=== PATIENT | female | born 1995 | race Two or more races ===

== ENCOUNTER 2017-10-07 21:12 | Emergency (ER) | payer OTHER ==
[2017-10-07] MEDS: ACETAMINOPHEN 500 MG TABLET PO (22:13)
[2017-10-07] MEDS: IV NORMAL SALINE 1000ML BAG 1,000 ML IV (22:14)
[2017-10-07 22:17] LABS: URINE HCG POC HCG NEGATIVE (Negative)
[2017-10-07 22:32] LABS: INFLUENZA A PATIENT NEGATIVE (NEGATIVE); INFLUENZA B PATIENT NEGATIVE (NEGATIVE); OBC FLU VALID
[2017-10-07] MEDS ORDERED: IBUPROFEN 400 MG TABLET. PO (23:22)
[2017-10-07] MEDS: IBUPROFEN 400 MG TABLET. PO (23:23)
[2017-10-08 10:16] LABS: NEGATIVE OBC STREP NEG; POSITIVE OBC STREP POS
== END 2017-10-08 00:24 | disposition home or self-care (01) ==
LOC: ER 21:12
DX: J02.0 Streptococcal pharyngitis (principal)
CPT/HCPCS: 81025; 87804; 87804-59; 87880; 96360; 96361; 99285-25; J7030

== ENCOUNTER 2017-10-22 18:47 | Inpatient (IN) | payer OTHER ==
[2017-10-22 19:09] LABS: URINE HCG POC HCG NEGATIVE (Negative)
[2017-10-22] MEDS: ACETAMINOPHEN 500 MG TABLET PO (19:21)
[2017-10-22] MEDS: IV NORMAL SALINE 1000ML BAG 1,000 ML IV (19:30)
[2017-10-22 19:34] LABS: BILIRUBIN,URINE NEGATIVE (NEG); CLARITY,URINE CLOUDY; COLOR,URINE YELLOW; GLUCOSE,URINE NEGATIVE (NEG); NITRITE,URINE NEGATIVE (NEG); PROTEIN,URINE 30 mg/dL (NEG-TRACE)
[2017-10-22 19:43] LABS: BACTERIA,URINE MODERATE /HPF (0-FEW); SQUAMOUS EPITHELIAL CELL,UR FEW /LPF; WBC,URINE TNTC /HPF (0-4)
[2017-10-22 19:44] LABS: BARBITURATES NEG (NEG); BENZODIAZEPINES NEG (NEG); CANNABINOIDS NEG (NEG); COCAINE NEG (NEG); METHADONE NEG (NEG); OPIATES NEG (NEG); PHENCYCLIDINE NEG (NEG)
[2017-10-22 19:51] LABS: AMPHETAMINE/METHAMPHETAMINE NEG (NEG); ETHANOL, URINE NEG (NEG)
[2017-10-22 19:55] LABS: D-DIMER 0.31 ug/mlFEU (0.00-0.50)
[2017-10-22 19:59] LABS: ANION GAP 9 (6-14); BLOOD UREA NITROGEN 16 mg/dL (7-20); BUN/CREATININE RATIO 18 (6-20); CALCIUM 8.4 mg/dL (8.5-10.1); CARBON DIOXIDE 26 mmol/L (21-32); CHLORIDE 101 mmol/L (98-107); CREATININE 0.9 mg/dL (0.6-1.0); GFR 80.7; GLUCOSE 112 mg/dL (70-99); POTASSIUM 3.3 mmol/L (3.5-5.1); SODIUM 136 mmol/L (136-145)
[2017-10-22 19:59] LABS: ETHANOL < 10 mg/dL (0-10)
[2017-10-22] MEDS ORDERED: cefTRIAXone SODIUM 2 GM in IV DEXTROSE 5% 100 ML IV (20:00)
[2017-10-22 20:04] LABS: LACTIC ACID 0.9 mmol/L (0.4-2.0)
[2017-10-22 20:07] LABS: TROPONINI < 0.017 ng/mL (0.000-0.055)
[2017-10-22 20:10] LABS: INFLUENZA A PATIENT NEGATIVE (NEGATIVE); INFLUENZA B PATIENT NEGATIVE (NEGATIVE); OBC FLU VALID
[2017-10-22 20:10] LABS: THYROID STIM HORMONE (TSH) 0.953 uIU/mL (0.358-3.74)
[2017-10-22 20:11] LABS: ALBUMIN 3.7 g/dL (3.4-5.0); ALBUMIN/GLOBULIN RATIO 0.8 (1.0-1.7); ALK PHOS 104 U/L (46-116); ALT (SGPT) 38 U/L (14-59); AST (SGOT) 26 U/L (15-37); CREATINE KINASE 58 U/L (26-192); LIPASE 107 U/L (73-393); MAGNESIUM 1.9 mg/dL (1.8-2.4); TOTAL BILIRUBIN 0.7 mg/dL (0.2-1.0); TOTAL PROTEIN 8.5 g/dL (6.4-8.2)
[2017-10-22 20:24] LABS: ADD MAN DIFF? NO
[2017-10-22 20:26] LABS: BASO % 0 % (0-3); EOS % 0 % (0-3); HEMATOCRIT 34.7 % (36.0-47.0); HEMOGLOBIN 11.4 g/dL (12.0-15.5); LYMPH # 1.7 x10^3/uL (1.0-4.8); LYMPH % 15 % (24-48); MEAN CORPUSCULAR HEMOGLOBIN 27 pg (25-35); MEAN CORPUSCULAR HGB CONC 33 g/dL (31-37); MEAN CORPUSCULAR VOLUME 82 fL (79-100); MONO % 9 % (0-9); NEUT # 8.5 x10^3uL (1.8-7.7); NEUT % 75 % (31-73); PLATELET COUNT 255 x10^3/uL (140-400); RED BLOOD COUNT 4.23 x10^6/uL (3.50-5.40); RED CELL DISTRIBUTION WIDTH 14.4 % (11.5-14.5); WHITE BLOOD COUNT 11.3 x10^3/uL (4.0-11.0)
[2017-10-22] MEDS: cefTRIAXone IV Push 2 GM VIAL. IVP (20:34)
[2017-10-22] MEDS: POTASSIUM CHLORIDE 20 MEQ TABLET.ER. PO (21:45)
[2017-10-22] MEDS: POTASSIUM CL 40MEQ IN 0.9%NACL 1,000 ML IV (22:18)
[2017-10-23] MEDS: ACETAMINOPHEN 325 MG TABLET. PO ×3 (02:21→23:06)
[2017-10-23] MEDS: ONDANSETRON PF 4 MG/2 ML VIAL. IV (03:52)
[2017-10-23 04:23] LABS: ADD MAN DIFF? NO
[2017-10-23 04:42] LABS: BASO % 0 % (0-3); EOS % 0 % (0-3); HEMATOCRIT 35.8 % (36.0-47.0); HEMOGLOBIN 11.5 g/dL (12.0-15.5); LYMPH # 0.9 x10^3/uL (1.0-4.8); LYMPH % 10 % (24-48); MEAN CORPUSCULAR HEMOGLOBIN 27 pg (25-35); MEAN CORPUSCULAR HGB CONC 32 g/dL (31-37); MEAN CORPUSCULAR VOLUME 83 fL (79-100); MONO # 0.7 x10^3/uL (0.0-1.1); MONO % 7 % (0-9); NEUT # 7.8 x10^3uL (1.8-7.7); NEUT % 83 % (31-73); PLATELET COUNT 217 x10^3/uL (140-400); RED CELL DISTRIBUTION WIDTH 15.2 % (11.5-14.5); WHITE BLOOD COUNT 9.4 x10^3/uL (4.0-11.0)
[2017-10-23 04:49] LABS: ANION GAP 9 (6-14); BLOOD UREA NITROGEN 13 mg/dL (7-20); CALCIUM 8.4 mg/dL (8.5-10.1); CARBON DIOXIDE 23 mmol/L (21-32); CHLORIDE 107 mmol/L (98-107); CREATININE 0.7 mg/dL (0.6-1.0); GFR 107.8; GLUCOSE 103 mg/dL (70-99); POTASSIUM 4.2 mmol/L (3.5-5.1); SODIUM 139 mmol/L (136-145)
[2017-10-23] MEDS: IBUPROFEN 400 MG TABLET. PO ×3 (06:09→23:06)
[2017-10-23] MEDS: LACTOBACILLUS RHAMNOSUS GG 1 CAPSULE. PO (20:43)
[2017-10-23] MEDS: cefTRIAXone IV Push 2 GM VIAL. IVP (20:43)
[2017-10-23] MEDS: IV NORMAL SALINE 1000ML BAG 1,000 ML IV (23:22)
[2017-10-24] MEDS: LACTOBACILLUS RHAMNOSUS GG 1 CAPSULE. PO (08:46)
[2017-10-24] MEDS: ACETAMINOPHEN 325 MG TABLET. PO (10:45)
== END 2017-10-24 11:59 | disposition home or self-care (01) | DRG 872 ==
LOC: ER 18:47 → 5 NORTH 20:29
DX: A41.9 Sepsis, unspecified organism (principal); N12 Tubulo-interstitial nephritis, not specified as acute or chronic; N39.0 Urinary tract infection, site not specified; E87.6 Hypokalemia; Z82.49 Family history of ischemic heart disease and other diseases of the circulatory system; Z91.19 Patient's noncompliance with other medical treatment and regimen
CPT/HCPCS: 36415; 71045; 80048; 80053; 80307; 81001; 81025; 82550; 83605; 83690; 83735; 84443; 84484; 85025; 85379; 87040; 87086; 87186; 87804; 87804-59; 93005; 96361; 96374; 99285; 99285-25; G0480; J0696; J2405; J3480; J7030

== ENCOUNTER 2019-01-09 20:12 | Emergency (ER) | payer OTHER ==
[~2019-01-09] VITALS: Ht 152.4 cm; Wt 67.1 kg
[~2019-01-09 20:12] MED LIST: ACET325T9 PO; AMOX1TAB61 PO; AMOX500C PO; IBUP-1060 PO; OSEL75CA PO
[2019-01-09 21:05] VITALS: BP 117/68
== END 2019-01-09 23:18 | disposition left against medical advice (07) ==
LOC: ER 20:12
DX: R10.30 Lower abdominal pain, unspecified (principal); Z53.21 Procedure and treatment not carried out due to patient leaving prior to being seen by health care provider

== ENCOUNTER 2021-10-09 10:35 | Emergency (ER) | payer MEDICAID, OTHER ==
[~2021-10-09] VITALS: Ht 152.4 cm; Wt 74.3 kg
[2021-10-09] MEDS ORDERED: IV NORMAL SALINE 1000ML BAG 1,000 ML IV ONE (11:30)
[2021-10-09] MEDS ORDERED: ACETAMINOPHEN 500 MG TABLET PO ONE (11:30)
[2021-10-09] MEDS ORDERED: IBUPROFEN 200 MG TABLET. PO ONE (11:30)
--- NOTE | 2021-10-09 11:58 | RAD ---
AP chest. HISTORY: Cough, congestion AP view was taken of the chest. Lungs are clear. Heart is normal in size. There is no pleural effusio n. IMPRESSION: 1. No acute infiltrates. Electronically signed by: Freddy Roberson MD (10/09/2021 11:55 AM) [facility]
[2021-10-09 12:06] LABS: BASO % 1 % (0-3); EOS # 0.1 x10^3/uL (0.0-0.7); EOS % 1 % (0-3); HEMATOCRIT 42.7 % (36.0-47.0); HEMOGLOBIN 14.2 g/dL (12.0-15.5); LYMPH % 19 % (24-48); MEAN CORPUSCULAR HEMOGLOBIN 30 pg (25-35); MEAN CORPUSCULAR HGB CONC 33 g/dL (31-37); MEAN CORPUSCULAR VOLUME 89 fL (79-100); MONO # 0.5 x10^3/uL (0.0-1.1); MONO % 9 % (0-9); NEUT # 3.8 x10^3/uL (1.8-7.7); NEUT % 71 % (31-73); PLATELET COUNT 205 x10^3/uL (140-400); RED BLOOD COUNT 4.78 x10^6/uL (3.50-5.40); RED CELL DISTRIBUTION WIDTH 12.6 % (11.5-14.5); WHITE BLOOD COUNT 5.3 x10^3/uL (4.0-11.0)
[2021-10-09 12:13] LABS: BILIRUBIN,URINE NEGATIVE (NEG); CLARITY,URINE HAZY; COLOR,URINE YELLOW; PH,URINE 8.5 (<5.0-8.0)
[2021-10-09 12:14] LABS: NITRITE,URINE NEGATIVE (NEG); PROTEIN,URINE NEGATIVE (NEG-TRACE)
[2021-10-09 12:15] LABS: CALCIUM 8.2 mg/dL (8.5-10.1); CREATININE 0.8 mg/dL (0.6-1.0); GFR 88.9; POTASSIUM 3.5 mmol/L (3.5-5.1)
[2021-10-09 12:15] LABS: BACTERIA,URINE FEW /HPF (0-FEW); RBC,URINE OCC /HPF (0-2)
[2021-10-09 12:21] LABS: ALBUMIN/GLOBULIN RATIO 0.8 (1.0-1.7); TOTAL BILIRUBIN 0.2 mg/dL (0.2-1.0); TOTAL PROTEIN 8.8 g/dL (6.4-8.2)
[2021-10-09 12:33] LABS: INFLUENZA B PATIENT NEGATIVE (NEGATIVE)
--- NOTE | 2021-10-09 12:34 | PHYS DOC ---
Past Medical History Past Medical History: No Pertinent History Past Surgical History: No Surgical History Additional Past Surgical Histo: 07/2017 Smoking Status: Never Smoker Alcohol Use: None Drug Use: None General Adult EDM: Chief Complaint: FEVER HPI: HPI: Patient is a 25-year-old female who presents with emergency department concerning cough and congestion with fever and chills since this past Friday. Patient reports she took a 500 mg [id number] Tylenol at 4 AM with minimal relief and fevers. Patient reports she did not take her temperature however she states she just felt hot. Patient denies chest pains, denies body aches, denies general malaise, denies loss of taste loss of smell, denies nausea, vomiting, diarrhea or abdominal discomfort, denies throat pain or ear pain. Patient reports her last menstrual cycle was in April 2021 stating she had her Implanon removed and has not had a menstrual cycle since. Patient denies vaginal discharge, rashes or lesions to her genitals, denies STI concerns. Patient states she has not been vaccinated for the flu virus or COVID-19 virus. Patient denies other physical complaints or physical concerns. Review of Systems: Review of Systems: 14 body systems of review of systems have been reviewed. See HPI for pertinent positives and negative responses, otherwise all other systems are negative, nonpertinent or noncontributory. Constitutional: Negative except as outlined in HPI above. Skin: Negative except as outlined in HPI above. Eyes: Negative except as outlined in HPI above. HENT: Negative except as outlined in HPI above. Respiratory: Negative except as outlined in HPI above. Cardiovascular: Negative except as outlined in HPI above. GI: Negative except as outlined in HPI above. : Negative except as outlined in HPI above. Musculoskeletal: Negative except as outlined in HPI above. Integument: Negative except as outlined in HPI above. Neurologic: Negative except as outlined in HPI above. Endocrine: Negative except as outlined in HPI above. Lymphatic: Negative except as outlined in HPI above. Psychiatric: Negative except as outlined in HPI above. Heart Score: C/O Chest Pain: No Risk Factors: Risk Factors: DM, Current or recent (<one month) smoker, HTN, HLP, family history of CAD, obesity. Risk Scores: Score 0 - 3: 2.5% MACE over next 6 weeks - Discharge Home Score 4 - 6: 20.3% MACE over next 6 weeks - Admit for Clinical Observation Score 7 - 10: 72.7% MACE over next 6 weeks - Early Invasive Strategies Current Medications: Current Medications Medications (Trade) Dose Ordered Sig/Diana Start Time Stop Time Status Last Admin Dose Admin Acetaminophen (Tylenol) 1,000 mg 1X ONCE 10/09/21 11:30 10/09/21 11:33 DC 10/09/21 12:02 1,000 MG Ibuprofen (Motrin) 600 mg 1X ONCE 10/09/21 11:30 10/09/21 11:33 DC 10/09/21 12:01 600 MG Sodium Chloride 1,000 ml @ 1,000 mls/hr 1X ONCE 10/09/21 11:30 10/09/21 12:29 10/09/21 12:01 1,000 MLS/HR Allergies: Allergies: Allergies Coded Allergies Type Severity Reaction Last Updated Verified No Known Drug Allergies 10/07/17 No Physical Exam: PE: Constitutional: Well developed, well nourished, no acute distress, non-toxic a ppearance. 25-year-old female in no apparent distress. HENT: Normocephalic, atraumatic. Oropharynx moist, pink, no deep tissue infectious process appreciated, the lymphadenopathy of the head or neck appreciated, bilateral TMs intact and within normal limits Eyes: Conjunctiva normal, no discharge. Neck: Normal range of motion, no stridor. No nuchal rigidity, no meningeal signs. Cardiovascular: No cyanosis appreciated, distal cap refill less than 2 seconds. Regular rate and rhythm, heart sounds S1-S2 to auscultation. Lungs & Thorax: Patient is in no respiratory distress, no audible adventitious lung sounds appreciated. Lung sounds are clear to auscultation all lung pierre, normal work of breathing. Abdomen: Nontender, no abnormalities noted. Skin: Warm, dry, no erythema, no rash. Back: No tenderness, no deformities. Extremities: No tenderness, no cyanosis, no clubbing, ROM intact, no edema. Neurologic: Alert and oriented X 3, normal motor function, normal sensory function, no focal deficits noted. Psychologic: Affect normal, judgement normal, mood normal. Current Patient Data: Labs: Laboratory Tests Test 10/09/21 11:02 10/09/21 11:15 10/09/21 11:20 10/09/21 11:28 Influenza Type A Antigen Positive Influenza Type B Antigen Negative SARS-CoV-2 Antigen (Rapid) Negative Urine Collection Type Unknown Urine Color Yellow Urine Clarity Hazy Urine pH 8.5 Urine Specific [place] 1.020 Urine Protein Negative mg/dL Urine Glucose (UA) Negative mg/dL Urine Ketones (Stick) Negative mg/dL Urine Blood Negative Urine Nitrite Negative Urine Bilirubin Negative Urine Urobilinogen Dipstick 1.0 mg/dL Urine Leukocyte Esterase Negative Urine RBC Occ /HPF Urine WBC 1-4 /HPF Urine Squamous Epithelial Cells Few /LPF Urine Bacteria Few /HPF Urine Mucus Slight /LPF White Blood Count 5.3 x10^3/uL Red Blood Count 4.78 x10^6/uL Hemoglobin 14.2 g/dL Hematocrit 42.7 % Mean Corpuscular Volume 89 fL Mean Corpuscular Hemoglobin 30 pg Mean Corpuscular Hemoglobin Concent 33 g/dL Red Cell Distribution Width 12.6 % Platelet Count 205 x10^3/uL Neutrophils (%) (Auto) 71 % Lymphocytes (%) (Auto) 19 % Monocytes (%) (Auto) 9 % Eosinophils (%) (Auto) 1 % Basophils (%) (Auto) 1 % Neutrophils # (Auto) 3.8 x10^3/uL Lymphocytes # (Auto) 1.0 x10^3/uL Monocytes # (Auto) 0.5 x10^3/uL Eosinophils # (Auto) 0.1 x10^3/uL Basophils # (Auto) 0.0 x10^3/uL Sodium Level 136 mmol/L Potassium Level 3.5 mmol/L Chloride Level 101 mmol/L Carbon Dioxide Level 28 mmol/L Anion Gap 7 Blood Urea Nitrogen 8 mg/dL Creatinine 0.8 mg/dL Estimated GFR (Cockcroft-Gault) 88.9 BUN/Creatinine Ratio 10 Glucose Level 88 mg/dL Calcium Level 8.2 mg/dL Total Bilirubin 0.2 mg/dL Aspartate Amino Transf (AST/SGOT) 30 U/L Alanine Aminotransferase (ALT/SGPT) 47 U/L Alkaline Phosphatase 61 U/L Total Protein 8.8 g/dL Albumin 4.0 g/dL Albumin/Globulin Ratio 0.8 Bedside Urine HCG, Qualitative Hcg negative Current Medications Medications (Trade) Dose Ordered Sig/Diana Route PRN Reason Start Time Stop Time Status Last Admin Dose Admin Sodium Chloride 1,000 ml @ 1,000 mls/hr 1X ONCE IV 10/09/21 11:30 10/09/21 12:29 DC 10/09/21 12:01 Acetaminophen (Tylenol) 1,000 mg 1X ONCE PO 10/09/21 11:30 10/09/21 11:33 DC 10/09/21 12:02 Ibuprofen (Motrin) 600 mg 1X ONCE PO 10/09/21 11:30 10/09/21 11:33 DC 10/09/21 12:01 Laboratory Tests Test 10/09/21 11:02 10/09/21 11:15 10/09/21 11:20 10/09/21 11:28 Influenza Type A Antigen Positive Influenza Type B Antigen Negative SARS-CoV-2 Antigen (Rapid) Negative Urine Collection Type Unknown Urine Color Yellow Urine Clarity Hazy Urine pH 8.5 Urine Specific [place] 1.020 Urine Protein Negative mg/dL Urine Glucose (UA) Negative mg/dL Urine Ketones (Stick) Negative mg/dL Urine Blood Negative Urine Nitrite Negative Urine Bilirubin Negative Urine Urobilinogen Dipstick 1.0 mg/dL Urine Leukocyte Esterase Negative Urine RBC Occ /HPF Urine WBC 1-4 /HPF Urine Squamous Epithelial Cells Few /LPF Urine Bacteria Few /HPF Urine Mucus Slight /LPF White Blood Count 5.3 x10^3/uL Red Blood Count 4.78 x10^6/uL Hemoglobin 14.2 g/dL Hematocrit 42.7 % Mean Corpuscular Volume 89 fL Mean Corpuscular Hemoglobin 30 pg Mean Corpuscular Hemoglobin Concent 33 g/dL Red Cell Distribution Width 12.6 % Platelet Count 205 x10^3/uL Neutrophils (%) (Auto) 71 % Lymphocytes (%) (Auto) 19 % Monocytes (%) (Auto) 9 % Eosinophils (%) (Auto) 1 % Basophils (%) (Auto) 1 % Neutrophils # (Auto) 3.8 x10^3/uL Lymphocytes # (Auto) 1.0 x10^3/uL Monocytes # (Auto) 0.5 x10^3/uL Eosinophils # (Auto) 0.1 x10^3/uL Basophils # (Auto) 0.0 x10^3/uL Sodium Level 136 mmol/L Potassium Level 3.5 mmol/L Chloride Level 101 mmol/L Carbon Dioxide Level 28 mmol/L Anion Gap 7 Blood Urea Nitrogen 8 mg/dL Creatinine 0.8 mg/dL Estimated GFR (Cockcroft-Gault) 88.9 BUN/Creatinine Ratio 10 Glucose Level 88 mg/dL Calcium Level 8.2 mg/dL Total Bilirubin 0.2 mg/dL Aspartate Amino Transf (AST/SGOT) 30 U/L Alanine Aminotransferase (ALT/SGPT) 47 U/L Alkaline Phosphatase 61 U/L Total Protein 8.8 g/dL Albumin 4.0 g/dL Albumin/Globulin Ratio 0.8 Bedside Urine HCG, Qualitative Hcg negative Current Medications Medications (Trade) Dose Ordered Sig/Diana Route PRN Reason Start Time Stop Time Status Last Admin Dose Admin Sodium Chloride 1,000 ml @ 1,000 mls/hr 1X ONCE IV 10/09/21 11:30 10/09/21 12:29 DC 10/09/21 12:01 Acetaminophen (Tylenol) 1,000 mg 1X ONCE PO 10/09/21 11:30 10/09/21 11:33 DC 10/09/21 12:02 Ibuprofen (Motrin) 600 mg 1X ONCE PO 10/09/21 11:30 10/09/21 11:33 DC 10/09/21 12:01 Laboratory Tests Test 10/09/21 11:15 10/09/21 11:20 10/09/21 11:28 Urine Collection Type Unknown Urine Color Yellow Urine Clarity Hazy Urine pH 8.5 (<5.0-8.0) Urine Specific [place] 1.020 (1.000-1.030) Urine Protein Negative mg/dL (NEG-TRACE) Urine Glucose (UA) Negative mg/dL (NEG) Urine Ketones (Stick) Negative mg/dL (NEG) Urine Blood Negative (NEG) Urine Nitrite Negative (NEG) Urine Bilirubin Negative (NEG) Urine Urobilinogen Dipstick 1.0 mg/dL (0.2 mg/dL) Urine Leukocyte Esterase Negative (NEG) Urine RBC Occ /HPF (0-2) Urine WBC 1-4 /HPF (0-4) Urine Squamous Epithelial Cells Few /LPF Urine Bacteria Few /HPF (0-FEW) Urine Mucus Slight /LPF White Blood Count 5.3 x10^3/uL (4.0-11.0) Red Blood Count 4.78 x10^6/uL (3.50-5.40) Hemoglobin 14.2 g/dL (12.0-15.5) Hematocrit 42.7 % (36.0-47.0) Mean Corpuscular Volume 89 fL (79-100) Mean Corpuscular Hemoglobin 30 pg (25-35) Mean Corpuscular Hemoglobin Concent 33 g/dL (31-37) Red Cell Distribution Width 12.6 % (11.5-14.5) Platelet Count 205 x10^3/uL (140-400) Neutrophils (%) (Auto) 71 % (31-73) Lymphocytes (%) (Auto) 19 % (24-48) L Monocytes (%) (Auto) 9 % (0-9) Eosinophils (%) (Auto) 1 % (0-3) Basophils (%) (Auto) 1 % (0-3) Neutrophils # (Auto) 3.8 x10^3/uL (1.8-7.7) Lymphocytes # (Auto) 1.0 x10^3/uL (1.0-4.8) Monocytes # (Auto) 0.5 x10^3/uL (0.0-1.1) Eosinophils # (Auto) 0.1 x10^3/uL (0.0-0.7) Basophils # (Auto) 0.0 x10^3/uL (0.0-0.2) Sodium Level 136 mmol/L (136-145) Potassium Level 3.5 mmol/L (3.5-5.1) Chloride Level 101 mmol/L (98-107) Carbon Dioxide Level 28 mmol/L (21-32) Anion Gap 7 (6-14) Blood Urea Nitrogen 8 mg/dL (7-20) Creatinine 0.8 mg/dL (0.6-1.0) Estimated GFR (Cockcroft-Gault) 88.9 BUN/Creatinine Ratio 10 (6-20) Glucose Level 88 mg/dL (70-99) Calcium Level 8.2 mg/dL (8.5-10.1) L Total Bilirubin 0.2 mg/dL (0.2-1.0) Aspartate Amino Transferase (AST) 30 U/L (15-37) Alanine Aminotransferase (ALT) 47 U/L (14-59) Alkaline Phosphatase 61 U/L (46-116) Total Protein 8.8 g/dL (6.4-8.2) H Albumin 4.0 g/dL (3.4-5.0) Albumin/Globulin Ratio 0.8 (1.0-1.7) L POC Urine HCG, Qualitative Hcg negative (Negative) Laboratory Tests 10/09/21 11:20 Laboratory Tests 10/09/21 11:20 Vital Signs: Vital Signs Date Time Temp Pulse Resp B/P (MAP) Pulse Ox O2 Delivery O2 Flow Rate FiO2 10/09/21 11:05 101.2 100 18 136/82 (100) 97 Room Air 101.2 EKG: EKG: [] Radiology/Procedures: Radiology/Procedures: REASON: Cough, congestion PROCEDURE: CHEST AP ONLY AP chest. HISTORY: Cough, congestion AP view was taken of the chest. Lungs are clear. Heart is normal in size. There is no pleural effusion. IMPRESSION: 1. No acute infiltrates. Electronically signed by: Freddy Roberson MD (10/09/2021 11:55 AM) [facility] Course & Med Decision Making: Course & Med Decision Making Pertinent Labs and Imaging studies reviewed. (See chart for details) 24-year-old female, vital signs reviewed, presents with emergency department concerning cough congestion with fever. Physical examination is unremarkable, however will order chest x-ray, CBC, BMP, urinalysis assay, urine test, 1 L normal saline, Tylenol and Motrin for fever of 101.2. Rapid flu and rapid COVID testing. CBC and BMP unremarkable, patient's urine is not infected, she is not per urine test, rapid Covid testing negative, rapid flu B-, patient is positive for rapid flu A, upon reevaluation of the patient, patient states she is feeling much better now oral temp is now 98.9, discussed findings of flu A with patient, Tamiflu was considered however is outside the recommended start time, discussed home care instructions with patient, follow-up with primary care soon, staying well-hydrated, may continue using Tylenol and or Motrin for return of fevers, discussed return to ER precautions or concerns, patient gave verbal understanding of and is amenable to ED discharge planning. Discussed with the patient all findings and diagnostic testing as well as the need to follow-up with their primary care provider for further evaluation and treatment or return to the ED if any new or worsening symptoms. Strict return precautions were also discussed at length, the patient voiced understanding and agreement with the discharge planning. The patient was nontoxic in appearance, in no apparent distress, and hemodynamically stable at the time of disposition. Dragon Disclaimer: Dragon Disclaimer: This electronic medical record was generated, in whole or in part, using a voice recognition dictation system. Departure Departure Impression: Primary Impression: Influenza A Disposition: HOME / SELF CARE / HOMELESS Condition: GOOD Referrals: NO PCP (PCP) Patient Instructions: Influenza Facts, Influenza, Adult Additional Instructions: You were seen today in the emergency department for fevers with cough and congestion since Friday. Your chest x-ray is reassuring as there is no pne umonia or infection appreciated, your blood work did not show any concerning findings, your rapid Covid test is negative, you did test positive for influenza A, I suspect your fevers may return, please use [id number] Tylenol and/or Motrin as directed for return of fevers body aches chills or other flulike symptoms, please drink plenty of fluids, follow-up with your primary care physician for ongoing symptoms, return to the emergency department for worsening symptoms or other concerns. Thank you for visiting our Emergency Department. It was a pleasure taking care of you today in the emergency department and we appreciate you trusting us with your care. If any additional problems come up don't hesitate to return to visit us. Please follow up with your primary care provider so they can plan additional care if needed and know about the problem that you had. If symptoms worsen come back to the Emergency Department. Any concerning symptoms that start such as chest pain, shortness of air, weakness or numbness on one side of the body, running high fevers or any other concerning symptoms return to the ER. EMERGENCY DEPARTMENT GENERAL DISCHARGE INSTRUCTIONS Thank you for coming to [facility] Emergency Department (ED) today and trusting us with you care. We trust that you had a positive experience in our Emergency Department. If you wish to speak to the department management, you may call the Director at [phone]. YOUR FOLLOW UP INSTRUCTIONS ARE FOLLOWS: 1. Do you have a private Doctor? If you do not have a private doctor, please ask for a resource list of physicians or clinics that may be able to assist you with follow up care. 2. The Emergency Physicain has interpreted your x-rays. The X-Ray specialist will also review them. If there is a change in the findings, you will be notified in 48 hours when at all possible. 3. A lab test or culture has been done, your results will be reviewed and you will be notified if you need a change in treatment. ADDITIONAL INSTRUCTIONS AND INFORMATION: 1. Your care today has been supervised by a physician who is specially trained in emergency care. Many problems require more than one evaluation for a complete diagnosis and treatment. We recommend that you schedule your follow up appointment as recommended to ensure complete treatment of you illness or injury. If you are unable to obtain follow up care and continue to have a problem, or if your condition worsens, we recommend that you return to the ED. 2. We are not able to safely determine your condition over the phone nor are we able to give sound medical advice over the phone. For these safety reasons, if you call for medical advice we will ask you to come to the ED for further evaluation. 3. If you have any questions regarding these discharge instructions please call the ED at [phone]. SAFETY INFORMATION: In the interest of safety, wellness, and injury prevention; we encourage you to wear your sealbelt, if you smoke; quite smoking, and we encourage family to use a protective helmet for bicycling and other sporting events that present an increased risk for head injury. IF YOUR SYMPTOMS WORSEN OR NEW SYMPTOMS DEVELOP, OR YOU HAVE CONCERNS ABOUT YOUR CONDITION; OR IF YOUR CONDITION WORSENS WHILE YOU ARE WAITING FOR YOUR FOLLOW UP APPOINTMENT; EITHER CONTACT YOUR PRIMARY CARE DOCTOR, THE PHYSICIAN WHOSE NAME AND NUMBER YOU WERE GIVEN, OR RETURN TO THE ED IMMEDIATELY. CAILIN STRONG APRN Oct 09, 2021 12:34
[2021-10-09 12:39] LABS: INFLUENZA A PATIENT POSITIVE (NEGATIVE)
[2021-10-09 13:15] VITALS: BP 116/59
== END 2021-10-09 13:15 | disposition home or self-care (01) ==
LOC: ER 10:35
DX: J10.1 Influenza due to other identified influenza virus with other respiratory manifestations (principal); Z20.822 Contact with and (suspected) exposure to COVID-19
CPT/HCPCS: 36415; 71045; 80053; 81001; 81025; 85025; 87428; 96360; 99284; J7030